=== PATIENT | male | born 2000 | race Caucasian/White ===

== ENCOUNTER 2021-03-22 13:23 | Emergency (ER) | payer OTHER ==
[2021-03-22 13:38] VITALS: BP 128/70; PULSE 98; RESP 20; TEMP 98.1
[2021-03-22 14:28] LABS: Basophils # (A) 0.1 k/uL (0-0.2); Basophils % (A) 1 %; Eosinophils # (A) 0.1 k/uL (0-0.7); Eosinophils % (A) 1 %; HCT 48.6 % (39.0-53.0); Lymphocytes # (A) 1.4 k/uL (1.0-4.8); Lymphocytes % (A) 15 %; MCH 30.3 pg (25.0-35.0); MCHC 32.9 g/dL (31.0-37.0); MCV 91.9 fL (80.0-100.0); Mean Platelet Volume 8.7; Monocytes # (A) 0.7 k/uL (0-1.0); Monocytes % (A) 8 %; Neutrophils # (A) 6.5 k/uL (1.3-7.7); Neutrophils % (A) 73 %; Platelet Count 191 k/uL (150-450); RBC 5.29 m/uL (4.30-5.90); RDW 13.6 % (11.5-15.5); WBC 8.9 k/uL (4.0-11.0)
[2021-03-22 14:44] LABS: ALT 20 U/L (4-49); AST 33 U/L (17-59); African American GFR (CKD) >90 (>60 ml/min/1.73 sqM); Albumin 4.8 g/dL (3.5-5.0); Alkaline Phosphatase 86 U/L (38-126); Anion Gap 8 mmol/L; Blood Urea Nitrogen 17 mg/dL (9-20); Calcium 9.7 mg/dL (8.4-10.2); Carbon Dioxide 27 mmol/L (22-30); Chloride 104 mmol/L (98-107); Glucose 94 mg/dL (74-99); Lipase 43 U/L (23-300); Non-African American GFR(CKD) >90 (>60 ml/min/1.73 sqM); Sodium 139 mmol/L (137-145); Total Bilirubin 0.9 mg/dL (0.2-1.3); Total Protein 7.5 g/dL (6.3-8.2)
--- NOTE | 2021-03-22 14:45 | ED ---
Abdominal Pain HPI - General Chief Complaint: Abdominal Pain Stated Complaint: bloody stool Source: patient Mode of arrival: ambulatory Limitations: no limitations - History of Present Illness Initial Comments: 20-year-old male with no reported medical history who presents to the emergency department with reported abdominal pain and tarry stools. Patient states that for the past 4 days he has had left upper quadrant abdominal pain. Last night the patient had an episode of black tarry stools. Patient denies history of similar. Does admit to frequent alcohol intake. Denies NSAID use. Patient denies any chest pain. No fevers, chills or cough. Denies any bright red blood per rectum. No history of endoscopy or ulcerative disease. Denies family history of inflammatory bowel disease. No lightheadedness. Patient admits to nausea with one episode of vomiting which was induced last night. No other alleviating, precipitating or modifying factors - Related Data Previous Rx's Medication Instructions Recorded Famotidine [Pepcid] 20 mg PO BID #28 tablet 03/22/21 Omeprazole [PriLOSEC] 20 mg PO AC-BRKFST #14 cap 03/22/21 Sucralfate [Carafate] 1 gm PO ACHS #56 tablet 03/22/21 Allergies Allergy/AdvReac Type Severity Reaction Status Date / Time Penicillins Allergy Rash/Hives Verified 03/22/21 14:16 Review of Systems ROS Statement: Those systems with pertinent positive or pertinent negative responses have been documented in the HPI. ROS Other: All systems not noted in ROS Statement are negative. Past Medical History Past Medical History: No Reported History History of Any Multi-Drug Resistant Organisms: None Reported Past Surgical History: No Surgical Hx Reported Past Psychological History: No Psychological Hx Reported Smoking Status: Vaper Past Alcohol Use History: Daily Past Drug Use History: None Reported General Exam Limitations: no limitations Course Vital Signs 03/22/21 13:35 Temperature 98.1 F Pulse Rate 98 Respiratory 20 Rate Blood Pressure 128/70 O2 Sat by Pulse 99 Oximetry Medical Decision Making - Medical Decision Making Upon arrival patient is placed into room 9. There are history of physical exam is performed. IV is established. Laboratory studies were conducted. Rectal exam was performed which demonstrates a small amount of brown stool. Sample is sent for testing and is occult positive. Hemoglobin is 16. Results are di scussed patient. At this time he is given 40 of Protonix. He'll be placed on Pepcid, omeprazole and Carafate. Patient is given follow-up information for Dr. Diez's office. Patient is to call make an appointment for endoscopy. Avoid alcohol and NSAIDs. Return to the emergency room for any new or worsening symptoms. Patient is discharged in stable condition - Lab Data Result diagrams: 03/22/21 14:13 03/22/21 14:13 Lab Results 03/22/21 03/22/21 03/22/21 Range/Units 14:13 14:13 14:13 WBC 8.9 (4.0-11.0) k/uL RBC 5.29 (4.30-5.90) m/uL Hgb 16.0 (13.0-17.5) gm/dL Hct 48.6 (39.0-53.0) % MCV 91.9 (80.0-100.0) fL MCH 30.3 (25.0-35.0) pg MCHC 32.9 (31.0-37.0) g/dL RDW 13.6 (11.5-15.5) % Plt Count 191 (150-450) k/uL MPV 8.7 Neutrophils % 73 % Lymphocytes % 15 % Monocytes % 8 % Eosinophils % 1 % Basophils % 1 % Neutrophils # 6.5 (1.3-7.7) k/uL Lymphocytes # 1.4 (1.0-4.8) k/uL Monocytes # 0.7 (0-1.0) k/uL Eosinophils # 0.1 (0-0.7) k/uL Basophils # 0.1 (0-0.2) k/uL Sodium 139 (137-145) mmol/L Potassium 4.3 (3.5-5.1) mmol/L Chloride 104 (98-107) mmol/L Carbon Dioxide 27 (22-30) mmol/L Anion Gap 8 mmol/L BUN 17 (9-20) mg/dL Creatinine 1.01 (0.66-1.25) mg/dL Est GFR (CKD-EPI)AfAm >90 (>60 ml/min/1.73 sqM) Est GFR (CKD-EPI)NonAf >90 (>60 ml/min/1.73 sqM) Glucose 94 (74-99) mg/dL Plasma Lactic Acid Bennie (0.7-2.0) mmol/L Calcium 9.7 (8.4-10.2) mg/dL Total Bilirubin 0.9 (0.2-1.3) mg/dL AST 33 (17-59) U/L ALT 20 (4-49) U/L Alkaline Phosphatase 86 (38-126) U/L Total Protein 7.5 (6.3-8.2) g/dL Albumin 4.8 (3.5-5.0) g/dL Lipase 43 (23-300) U/L Urine Color Yellow Urine Appearance Turbid (Clear) Urine pH 8.5 H (5.0-8.0) Ur Specific [place] 1.014 (1.001-1.035) Urine Protein Negative (Negative) Urine Glucose (UA) Negative (Negative) Urine Ketones Negative (Negative) Urine Blood Negative (Negative) Urine Nitrite Negative (Negative) Urine Bilirubin Negative (Negative) Urine Urobilinogen <2.0 (<2.0) mg/dL Ur Leukocyte Esterase Negative (Negative) Urine RBC 2 (0-5) /hpf Amorphous Sediment Moderate H (None) /hpf Urine Bacteria Rare H (None) /hpf Stool Occult Blood (Negative) 03/22/21 03/22/21 Range/Units 14:13 14:14 WBC (4.0-11.0) k/uL RBC (4.30-5.90) m/uL Hgb (13.0-17.5) gm/dL Hct (39.0-53.0) % MCV (80.0-100.0) fL MCH (25.0-35.0) pg MCHC (31.0-37.0) g/dL RDW (11.5-15.5) % Plt Count (150-450) k/uL MPV Neutrophils % % Lymphocytes % % Monocytes % % Eosinophils % % Basophils % % Neutrophils # (1.3-7.7) k/uL Lymphocytes # (1.0-4.8) k/uL Monocytes # (0-1.0) k/uL Eosinophils # (0-0.7) k/uL Basophils # (0-0.2) k/uL Sodium (137-145) mmol/L Potassium (3.5-5.1) mmol/L Chloride (98-107) mmol/L Carbon Dioxide (22-30) mmol/L Anion Gap mmol/L BUN (9-20) mg/dL Creatinine (0.66-1.25) mg/dL Est GFR (CKD-EPI)AfAm (>60 ml/min/1.73 sqM) Est GFR (CKD-EPI)NonAf (>60 ml/min/1.73 sqM) Glucose (74-99) mg/dL Plasma Lactic Acid Bennie 0.9 (0.7-2.0) mmol/L Calcium (8.4-10.2) mg/dL Total Bilirubin (0.2-1.3) mg/dL AST (17-59) U/L ALT (4-49) U/L Alkaline Phosphatase (38-126) U/L Total Protein (6.3-8.2) g/dL Albumin (3.5-5.0) g/dL Lipase (23-300) U/L Urine Color Urine Appearance (Clear) Urine pH (5.0-8.0) Ur Specific [place] (1.001-1.035) Urine Protein (Negative) Urine Glucose (UA) (Negative) Urine Ketones (Negative) Urine Blood (Negative) Urine Nitrite (Negative) Urine Bilirubin (Negative) Urine Urobilinogen (<2.0) mg/dL Ur Leukocyte Esterase (Negative) Urine RBC (0-5) /hpf Amorphous Sediment (None) /hpf Urine Bacteria (None) /hpf Stool Occult Blood Positive (Negative) - EKG Data EKG Comments: EKG demonstrates normal sinus rhythm with a rate of 63. AL interval 122. QRS 108. QTC of 425. No acute ST segment elevations or depressions concerning for ischemic changes Disposition Clinical Impression: Abdominal pain, Melena Disposition: HOME SELF-CARE Condition: Stable Instructions (If sedation given, give patient instructions): Gastrointestinal Bleeding (ED) Additional Instructions: Please follow-up with the GI doctor within 1 week. Please call and make an appointment. Stay with from alcohol and NSAIDs. Take the medications as directed. Return to the emergency room for any new or worsening symptoms Prescriptions: Sucralfate [Carafate] 1 gm PO ACHS #56 tablet Famotidine [Pepcid] 20 mg PO BID #28 tablet Omeprazole [PriLOSEC] 20 mg PO -BRKT #14 cap Is patient prescribed a controlled substance at d/c from ED?: No Referrals: Nonstaff,Physician [Primary Care Provider] - 1-2 days Jenn Chaves MD [STAFF PHYSICIAN] - 1-2 days Time of Disposition: 15:35
[2021-03-22 14:46] LABS: Potassium 4.3 mmol/L (3.5-5.1)
[2021-03-22] MEDS ORDERED: PANTOPRAZOLE 40 MG/10 ML VIAL IVP STA (14:46)
[2021-03-22 15:26] LABS: Amorphous Sediment,Urine Moderate /hpf; Appearance,Urine Turbid (Clear); Bacteria,Urine Rare /hpf; Bilirubin,Urine Negative (Negative); Blood,Urine Negative (Negative); Color,Urine Yellow; Glucose,Urine (UA) Negative (Negative); Ketones,Urine Negative (Negative); Leukocyte Esterase,Urine Negative (Negative); Nitrite,Urine Negative (Negative); PH, Urine 8.5 (5.0-8.0); Protein,Urine Negative (Negative); RBC,Urine 2 /hpf (0-5); Specific Gravity,Urine 1.014 (1.001-1.035); Urobilinogen,Urine <2.0 mg/dL (<2.0)
== END 2021-03-22 15:41 | disposition home or self-care (01) ==
LOC: EC 13:23
DX: K92.1 Melena (principal); R10.12 Left upper quadrant pain; F17.290 Nicotine dependence, other tobacco product, uncomplicated
CPT/HCPCS: 36415; 93005; 80053; 83605; 83690; 85025; 82272; 81001; 96374; 99284; C9113

== ENCOUNTER 2021-05-08 05:23 | Emergency (ER) | payer OTHER ==
[2021-05-08 05:55] VITALS: TEMP 98.3
[2021-05-08 06:07] LABS: Basophils % (A) 0 %; Eosinophils # (A) 0.2 k/uL (0-0.7); Eosinophils % (A) 2 %; HCT 46.8 % (39.0-53.0); HGB 15.8 gm/dL (13.0-17.5); Lymphocytes # (A) 1.6 k/uL (1.0-4.8); Lymphocytes % (A) 22 %; MCH 32.7 pg (25.0-35.0); MCHC 33.8 g/dL (31.0-37.0); Mean Platelet Volume 8.5; Monocytes # (A) 0.4 k/uL (0-1.0); Monocytes % (A) 6 %; Neutrophils # (A) 4.9 k/uL (1.3-7.7); Neutrophils % (A) 68 %; Platelet Count 214 k/uL (150-450); RBC 4.83 m/uL (4.30-5.90); RDW 13.9 % (11.5-15.5); WBC 7.2 k/uL (4.0-11.0)
--- NOTE | 2021-05-08 06:11 | ED ---
Psych HPI - General Source: patient, police, EMS Mode of arrival: EMS - History of Present Illness MD Complaint: suicidal ideation, feels depressed -: hour(s) Associated Psychiatric Symptoms: depression, suicidal ideation Improves With: none Worsens With: alcohol Context: recent alcohol abuse Associated Symptoms: denies other symptoms <Avtar Fischer - Last Filed: 05/08/21 07:09> <Amadeo Yip - Last Filed: 05/08/21 11:52> - General Chief Complaint: Psychiatric Symptoms Stated Complaint: Mental Health Time Seen by Provider: 05/08/21 05:33 - History of Present Illness Initial Comments: This patient is 20-year-old man who states that he had been drinking, then felt depressed and suicidal. He took what remained of his prescription medications which included sucralfate, famotidine and omeprazole. (Avtar Fischer) - Related Data Previous Rx's Medication Instructions Recorded Famotidine [Pepcid] 20 mg PO BID #28 tablet 03/22/21 Omeprazole [PriLOSEC] 20 mg PO AC-BRKFST #14 cap 03/22/21 Sucralfate [Carafate] 1 gm PO ACHS #56 tablet 03/22/21 Allergies Allergy/AdvReac Type Severity Reaction Status Date / Time Penicillins Allergy Rash/Hives Verified 05/08/21 10:08 Review of Systems ROS Other: All systems not noted in ROS Statement are negative. Constitutional: Denies: fever, chills Respiratory: Denies: cough, dyspnea Cardiovascular: Denies: chest pain, palpitations, orthopnea Gastrointestinal: Denies: abdominal pain, nausea, vomiting, diarrhea, melena, hematochezia Genitourinary: Denies: dysuria, hematuria Musculoskeletal: Denies: back pain Skin: Denies: rash Neurological: Denies: headache, weakness, numbness Psychiatric: Reports: depression, suicidal thoughts <Avtar Fischer - Last Filed: 05/08/21 07:09> ROS Other: All systems not noted in ROS Statement are negative. <Amadeo Yip - Last Filed: 05/08/21 11:52> ROS Statement: Those systems with pertinent positive or pertinent negative responses have been documented in the HPI. Past Medical History Past Medical History: No Reported History History of Any Multi-Drug Resistant Organisms: None Reported Past Surgical History: No Surgical Hx Reported Past Psychological History: No Psychological Hx Reported Smoking Status: Vaper Past Alcohol Use History: Daily Past Drug Use History: Cocaine, Marijuana <Avtar Fischer - Last Filed: 05/08/21 07:09> General Exam Limitations: no limitations General appearance: alert, in no apparent distress, appears intoxicated Head exam: Present: atraumatic, normocephalic Eye exam: Present: normal appearance, PERRL, EOMI. Absent: scleral icterus, c onjunctival injection ENT exam: Present: normal exam Respiratory exam: Present: normal lung sounds bilaterally. Absent: respiratory distress, wheezes, rales, rhonchi, stridor Cardiovascular Exam: Present: regular rate, normal rhythm, normal heart sounds. Absent: systolic murmur, diastolic murmur, rubs, gallop GI/Abdominal exam: Present: soft. Absent: distended, tenderness, guarding, rebound, rigid, mass, pulsatile mass, hernia Extremities exam: Present: normal inspection, normal capillary refill. Absent: pedal edema, calf tenderness Back exam: Present: normal inspection. Absent: CVA tenderness (R), CVA tenderness (L) Neurological exam: Present: alert Psychiatric exam: Present: depressed, suicidal ideation. Absent: agitated, anxious, flat affect, manic, homicidal ideation Skin exam: Present: warm, dry, intact, normal color. Absent: rash <Avtar Fischer Filed: 05/08/21 07:09> Course Vital Signs 05/08/21 05/08/21 05/08/21 05:45 06:49 07:13 Temperature 98.3 F Pulse Rate 83 84 84 Respiratory 18 16 16 Rate Blood Pressure 145/107 97/47 97/47 O2 Sat by Pulse 97 97 97 Oximetry Medical Decision Making - Lab Data Result diagrams: 05/08/21 05:58 05/08/21 05:58 - EKG Data -: EKG Interpreted by Me EKG shows normal: sinus rhythm, axis (Normal), intervals (Normal), QRS complexes (Normal), ST-T waves (Normal) Rate: normal (Rate 68 bpm) Interpretation: normal EKG <Avtar Fischer - Last Filed: 05/08/21 07:09> - Lab Data Result diagrams: 05/08/21 05:58 05/08/21 05:58 <Amadeo Yip - Last Filed: 05/08/21 11:52> - Medical Decision Making When patient was sober EPS evaluated the patient and he agreed that he was not suicidal at this time is a set up a safety plan and he will be discharged home to follow-up. (Amadeo Yip) - Lab Data Lab Results 05/08/21 05/08/21 05/08/21 Range/Units 05:58 05:58 05:58 WBC 7.2 (4.0-11.0) k/uL RBC 4.83 (4.30-5.90) m/uL Hgb 15.8 (13.0-17.5) gm/dL Hct 46.8 (39.0-53.0) % MCV 96.9 D (80.0-100.0) fL MCH 32.7 (25.0-35.0) pg MCHC 33.8 (31.0-37.0) g/dL RDW 13.9 (11.5-15.5) % Plt Count 214 (150-450) k/uL MPV 8.5 Neutrophils % 68 % Lymphocytes % 22 % Monocytes % 6 % Eosinophils % 2 % Basophils % 0 % Neutrophils # 4.9 (1.3-7.7) k/uL Lymphocytes # 1.6 (1.0-4.8) k/uL Monocytes # 0.4 (0-1.0) k/uL Eosinophils # 0.2 (0-0.7) k/uL Basophils # 0.0 (0-0.2) k/uL Sodium 143 (137-145) mmol/L Potassium 3.4 L (3.5-5.1) mmol/L Chloride 110 H (98-107) mmol/L Carbon Dioxide 22 (22-30) mmol/L Anion Gap 11 mmol/L BUN 9 (9-20) mg/dL Creatinine 0.84 (0.66-1.25) mg/dL Est GFR (CKD-EPI)AfAm >90 (>60 ml/min/1.73 sqM) Est GFR (CKD-EPI)NonAf >90 (>60 ml/min/1.73 sqM) Glucose 90 (74-99) mg/dL Calcium 9.1 (8.4-10.2) mg/dL Total Bilirubin 0.3 (0.2-1.3) mg/dL AST 26 (17-59) U/L ALT 20 (4-49) U/L Alkaline Phosphatase 78 (38-126) U/L Total Protein 6.9 (6.3-8.2) g/dL Albumin 4.5 (3.5-5.0) g/dL Salicylates <1.0 mg/dL Urine Opiates Screen Not Detected (NotDetected) Ur Oxycodone Screen Not Detected (NotDetected) Urine Methadone Screen Not Detected (NotDetected) Ur Propoxyphene Screen Not Detected (NotDetected) Acetaminophen <10.0 ug/mL Ur Barbiturates Screen Not Detected (NotDetected) U Tricyclic Antidepress Not Detected (NotDetected) Ur Phencyclidine Scrn Not Detected (NotDetected) Ur Amphetamines Screen Not Detected (NotDetected) U Methamphetamines Scrn Not Detected (NotDetected) U Benzodiazepines Scrn Not Detected (NotDetected) Urine Cocaine Screen Not Detected (NotDetected) U Marijuana (THC) Screen Not Detected (NotDetected) Serum Alcohol 113 mg/dL Disposition <Avtar Fischer - Last Filed: 05/08/21 07:09> Is patient prescribed a controlled substance at d/c from ED?: No Time of Disposition: 11:50 <Amadeo Yip - Last Filed: 05/08/21 11:52> Clinical Impression: Depression, Alcohol intoxication, Suicidal ideation Disposition: HOME SELF-CARE Instructions (If sedation given, give patient instructions): Depression (ED), Alcohol Intoxication (ED) Referrals: None,Stated [Primary Care Provider] - 1-2 days
[2021-05-08 06:24] LABS: MCV 96.9 fL (80.0-100.0)
[2021-05-08 06:29] LABS: ALT 20 U/L (4-49); AST 26 U/L (17-59); Acetaminophen <10.0 ug/mL; African American GFR (CKD) >90 (>60 ml/min/1.73 sqM); Albumin 4.5 g/dL (3.5-5.0); Alkaline Phosphatase 78 U/L (38-126); Anion Gap 11 mmol/L; Blood Urea Nitrogen 9 mg/dL (9-20); Calcium 9.1 mg/dL (8.4-10.2); Carbon Dioxide 22 mmol/L (22-30); Chloride 110 mmol/L (98-107); Glucose 90 mg/dL (74-99); Non-African American GFR(CKD) >90 (>60 ml/min/1.73 sqM); Potassium 3.4 mmol/L (3.5-5.1); Salicylate <1.0 mg/dL; Sodium 143 mmol/L (137-145); Total Bilirubin 0.3 mg/dL (0.2-1.3); Total Protein 6.9 g/dL (6.3-8.2)
[2021-05-08 06:30] LABS: Amphetamine Screen,Urine Not Detected (NotDetected); Barbiturate Screen,Urine Not Detected (NotDetected); Benzodiazepines Screen,Urine Not Detected (NotDetected); Cocaine Screen,Urine Not Detected (NotDetected); Methadone Screen, Urine Not Detected (NotDetected); Opiate Screen,Urine Not Detected (NotDetected); Oxycodone Screen, Urine Not Detected (NotDetected); Phencyclidine Screen,Urine Not Detected (NotDetected); Tricyclic Antidepressant,Urine Not Detected (NotDetected); Urn Cannabinoid Scrn Not Detected (NotDetected)
[2021-05-08 06:43] LABS: Alcohol 113 mg/dL
[2021-05-08 06:50] VITALS: BP 97/47; PULSE 84; RESP 16
== END 2021-05-08 12:07 | disposition home or self-care (01) ==
LOC: EC 05:23
DX: F32.9 Major depressive disorder, single episode, unspecified (principal); F10.129 Alcohol abuse with intoxication, unspecified; R45.851 Suicidal ideations; F17.290 Nicotine dependence, other tobacco product, uncomplicated; F12.90 Cannabis use, unspecified, uncomplicated; F14.90 Cocaine use, unspecified, uncomplicated; Y90.5 Blood alcohol level of 100-119 mg/100 ml
CPT/HCPCS: 82075; 36415; 93005; 80053; 85025; 80306; 80143; 80179; 99285; G0480; 80320